=== PATIENT | female | born 1980 | race African-American/Black ===

== ENCOUNTER 2019-03-18 | Emergency (ER) | payer SELFPAY ==
--- NOTE | 2019-03-17 23:42 | NUR ---
BREATHING TREATMENT GIVEN BACK TO BACK. BREATHING TECH. FOR GOOD DEPOSITION TO THE LUNGS.
[2019-03-18] MEDS ORDERED: PREDNISONE50 MG PO ×2 (00:50)
[2019-03-18] MEDS ORDERED: VENTOLIN HFA IN ×2 (00:50)
== END 2019-03-18 01:09 | disposition home or self-care (01) | DRG 203 ==
DX: J45.901 Unspecified asthma with (acute) exacerbation (principal)

== ENCOUNTER 2019-10-25 04:49 | Emergency (ER) | payer SELFPAY ==
[~2019-10-25] VITALS: Ht 160 cm; Wt 86.0 kg
[~2019-10-25 04:49] MED LIST: PREDNISONE50 MG PO; VENTOLIN HFA IN
[2019-10-25] MEDS ORDERED: VENTOLIN HFA IN (05:18)
[2019-10-25] MEDS ORDERED: PROVENTIL HFA IN (05:47)
[2019-10-25 05:58] VITALS: BP 142/77
== END 2019-10-25 05:58 | disposition home or self-care (01) | DRG 203 ==
LOC: ED 04:49
DX: J45.901 Unspecified asthma with (acute) exacerbation (principal)

== ENCOUNTER 2020-04-28 14:07 | Emergency (ER) | payer SELFPAY ==
[~2020-04-28] VITALS: Ht 160 cm; Wt 85.0 kg
[~2020-04-28 14:07] MED LIST changes: +PROVENTIL HFA IN
[2020-04-28] MEDS ORDERED: VENTOLIN HFA IN (14:28)
[2020-04-28] MEDS ORDERED: CLEOCIN300 MG PO (14:42)
[2020-04-28] MEDS ORDERED: TRAMADOL HYDROC50 MG PO (14:45)
[2020-04-28 14:59] VITALS: BP 164/92
== END 2020-04-28 14:59 | disposition home or self-care (01) | DRG 159 ==
LOC: ED 14:07
DX: K02.9 Dental caries, unspecified (principal); K05.10 Chronic gingivitis, plaque induced; J45.909 Unspecified asthma, uncomplicated

== ENCOUNTER 2021-02-17 06:31 | Emergency (ER) | payer BC ==
[~2021-02-17] VITALS: Ht 160 cm; Wt 91.0 kg
[~2021-02-17 06:31] MED LIST changes: +CLEOCIN300 MG PO; +TRAMADOL HYDROC50 MG PO
[2021-02-17 07:33] LABS: HEMATOCRIT 32.4 % (37.0-47.0); HEMOGLOBIN 8.7 g/dl (12.0-16.0); IMMATURE GRANULOCYTES 0.4 % (0.0-5.0); MEAN CELL VOLUME 64.4 fL CALC (80.0-100.0); MEAN CORPUSCULAR HGB 17.3 pG CALC (26.0-32.0); MEAN CORPUSCULAR HGB CONC 26.9 g/dL CAL (32.0-36.0); NEUT# 12.94 thou/uL (2.00-7.15); RED BLOOD COUNT 5.03 mill/uL (4.20-5.60); RED CELL DISTRI WIDTH 18.8 % (11.5-15.5)
[2021-02-17 07:34] LABS: URINE BILIRUBIN - DIPSTICK NEGATIVE (NEGATIVE); URINE BLOOD DIPSTICK LARGE (NEGATIVE); URINE COLOR YELLOW; URINE GLUCOSE - DIPSTICK NEGATIVE (NEGATIVE); URINE KETONE NEGATIVE (NEGATIVE); URINE LEUK ESTERASE TRACE (NEGATIVE); URINE PH 5.5 (4.5-8.0); URINE PROTEIN - DIPSTICK NEGATIVE (NEG-TRACE); URINE SPECIFIC GRAVITY >=1.030; URINE UROBILINOGEN - DIPSTICK 0.2 E.U./dL (0.2)
[2021-02-17 07:35] LABS: URINE NITRITE - DIPSTICK NEGATIVE (Negative)
[2021-02-17 07:44] LABS: URINE RBC 25-50 RBC/hpf (0-5); URINE SQUAMOUS EPITHELIAL CELL FEW EPI/hpf (0-FEW)
[2021-02-17 08:11] LABS: ALKALINE PHOSPHATASE 90 u/l (38-126); ANION GAP 14 (6-22 (CALC)); BUN 14 mg/dL (7-17); BUN/CREATININE RATIO 16 (12-20 (CALC)); CARBON DIOXIDE 25 mmol/l (22-30); CHLORIDE 101 mmol/l (95-108); CREATININE 0.9 mg/dL (0.5-1.0); GFR > 60 ML/MIN (>=60 (CALC)); GFR FOR AFR.AMER. > 60 ML/MIN (>=60 (CALC)); POTASSIUM 3.9 mmol/l (3.5-5.1); SGOT/AST 24 u/l (14-36); SODIUM 137 mmol/l (137-146)
[2021-02-17 08:13] LABS: ALBUMIN 4.2 g/dL (3.2-5.0); BILIRUBIN, TOTAL 1.3 mg/dL (0.0-1.4); TOTAL PROTEIN 8.1 g/dL (6.3-8.2)
[2021-02-17] MEDS ORDERED: BACTRIM DS1 TAB PO (09:04)
[2021-02-17] MEDS ORDERED: ULTRAM50 MG PO ×2 (09:04→09:05)
[2021-02-17 09:30] VITALS: BP 143/65
== END 2021-02-17 09:39 | disposition home or self-care (01) | DRG 690 ==
LOC: ED 06:31
PROVIDERS: Family Medicine
DX: N39.0 Urinary tract infection, site not specified (principal); R16.0 Hepatomegaly, not elsewhere classified; J45.909 Unspecified asthma, uncomplicated

== ENCOUNTER 2022-01-16 07:48 | Emergency (ER) | payer SELFPAY ==
[~2022-01-16] VITALS: Ht 160 cm; Wt 84.1 kg
[~2022-01-16 07:48] MED LIST changes: +BACTRIM DS1 TAB PO; +ULTRAM50 MG PO
[2022-01-16 08:09] VITALS: BP 154/68
[2022-01-16] MEDS ORDERED: MOTRIN800 MG PO (08:19)
[2022-01-16] MEDS ORDERED: PYRIDIUM200 MG PO (08:19)
[2022-01-16] MEDS ORDERED: BACTRIM DS1 TAB PO (08:19)
[2022-01-16 08:47] LABS: URINE BILIRUBIN - DIPSTICK NEGATIVE (NEGATIVE); URINE BLOOD DIPSTICK LARGE (NEGATIVE); URINE COLOR YELLOW; URINE GLUCOSE - DIPSTICK NEGATIVE (NEGATIVE); URINE KETONE NEGATIVE (NEGATIVE); URINE LEUK ESTERASE NEGATIVE (NEGATIVE); URINE PH 5.5 (4.5-8.0); URINE PROTEIN - DIPSTICK TRACE mg/dL (NEG-TRACE); URINE SPECIFIC GRAVITY >=1.030; URINE UROBILINOGEN - DIPSTICK 0.2 E.U./dL (0.2)
[2022-01-16 08:48] LABS: URINE NITRITE - DIPSTICK NEGATIVE (Negative)
[2022-01-16 08:51] LABS: URINE BACTERIA MANY hpf
[2022-01-16 08:52] LABS: URINE TRICHOMONAS MODERATE hpf
[2022-01-16 08:53] LABS: URINE SQUAMOUS EPITHELIAL CELL FEW EPI/hpf (0-FEW)
[2022-01-16 09:24] VITALS: BP 154/68
--- NOTE | 2022-01-19 10:14 | NUR ---
Antibiotic therapy needs to be changed due to urinalysis and urine culture results. Attempted to contact pt via phone x2 yesterday, left voicemail. Attempted to contact pt via phone again today and again left voicemail.
== END 2022-01-16 09:24 | disposition home or self-care (01) | DRG 690 ==
LOC: ED 07:48
PROVIDERS: Emergency Medicine
DX: N39.0 Urinary tract infection, site not specified (principal); M79.651 Pain in right thigh; J45.909 Unspecified asthma, uncomplicated

== ENCOUNTER 2023-10-25 11:33 | Emergency (ER) | payer SELFPAY ==
[~2023-10-25] VITALS: Ht 160 cm; Wt 86.0 kg
[~2023-10-25 11:33] MED LIST changes: +FERROUS SULFAT325 MG PO; +MOTRIN800 MG PO; +PYRIDIUM200 MG PO; +VENTOLIN HFA108 MCG IN
[2023-10-25 11:41] VITALS: BP 150/93
[2023-10-25 12:00] VITALS: BP 142/82
[2023-10-25] MEDS ORDERED: OPHTHALMIC IRRIGATION SOLUTION 118 ML BTL OU ONE (12:00)
[2023-10-25] MEDS ORDERED: FLUORESCEIN SODIUM 1 MG EA OD ONE (12:00)
[2023-10-25] MEDS ORDERED: Diph, Acellular Pertussis, Tet 0.5 ML/VIAL (Tdap) SDV IM ONE (12:05)
[2023-10-25] MEDS ORDERED: TETRACAINE HCL 0.5 %/4 ML SOL OS ONE (12:05)
[2023-10-25 12:31] VITALS: BP 129/72
[2023-10-25] MEDS ORDERED: ERYTHROMYCIN O3.5 GM OS (12:31)
[2023-10-25 12:33] VITALS: BP 129/72
== END 2023-10-25 12:39 | disposition home or self-care (01) | DRG 125 ==
LOC: ED 11:33
DX: S05.02XA Injury of conjunctiva and corneal abrasion without foreign body, left eye, initial encounter (principal); X58.XXXA Exposure to other specified factors, initial encounter